=== PATIENT | male | born 1990 | race Caucasian/White ===

== ENCOUNTER 2024-12-05 11:59 | Day surgery (SDC) | payer OTHER, SELFPAY ==
[2024-12-05] VITALS (21 sets, daily range): BP systolic 124–151; BP diastolic 79–93; PULSE 65–104; RESP 14–21; TEMP 36.2–37.2; O2SAT 95–99; BMI 32.4
--- NOTE | 2024-12-05 10:00 | CRLHL7_ITS ---
For Patients: As a result of the 21st Century Cures Act, medical imaging exams and procedure reports are released immediately into your electronic medical record. You may view this report before your referring provider. If you have questions, please contact your health care provider. INDICATION: COMPARISON: None available. TECHNIQUE: CT of the abdomen and pelvis with 117 cc of Isovue 370 intravenous contrast. Neutral oral contrast (water) was also given. Please note that all CT scans at this facility use dose modulation, iterative reconstruction, and/or weight-based dosing when appropriate to reduce radiation dose to as low as reasonably achievable. FINDINGS: ABDOMEN Liver: Normal contour and attenuation. No significant focal lesion. Too small to characterize round hypoattenuating focus in segment 7 (series 2; image 40). This finding is statistically likely to represent benign cyst for which no further workup or ongoing imaging surveillance is indicated in the absence of an established history of malignancy and without significant underlying liver disease. No intrahepatic biliary ductal dilatation. Patent portal veins. Patent hepatic veins. Gallbladder: Normal size. No pericholecystic inflammatory changes. Normal common duct caliber. Pancreas: Normal contour and attenuation. No peripancreatic inflammatory changes. No significant focal lesion. Normal main duct caliber. Spleen: Not enlarged. No significant focal lesion. Patent splenic artery and vein. Adrenal Glands: Symmetrical adrenal glands. No significant focal lesion. Kidneys: Normal bilateral renal attenuation. No significant focal lesion. No nephrolith. No dilatation of the intrarenal collecting systems. No ureteral stone. Nondilated ureters. Patent renal arteries and veins. Gastrointestinal tract: 10 mm appendicolith associated with dilatation of the appendix, wall thickening and periappendiceal inflammatory fat stranding which extends to the right renal fascia and combined interfascial plane of the right iliac fossa. No discontinuity of the appendiceal wall indicate perforation. No abscess. No associated bowel obstruction. Vascular: Abdominal aorta and its major proximal branches including the celiac, superior mesenteric, inferior mesenteric, renal, and bilateral common iliac arteries are patent. Patent superior mesenteric vein. Peritoneal Cavity/Retroperitoneum: No ascites. No adenopathy. PELVIS No bladder lesion is identified. No significant incidental findings related to the prostate or seminal vesicles. No significant ascites. No adenopathy. SKELETON AND BODY WALL No acute or significant incidental findings. LOWER THORAX Partially included lower thoracic wall, lungs, pleural spaces and mediastinum are without significant incidental findings. IMPRESSION: Acute uncomplicated appendicitis. Surgical consultation is recommended. Please note that all CT scans at this facility use dose modulation, iterative reconstruction, and/or weight-based dosing when appropriate to reduce radiation dose to as low as reasonably achievable. Dictated by Jose Manuel Smith MD @ 12/05/2024 10:40:44 AM (Electronically Signed)
--- NOTE | 2024-12-05 13:21 | PM.GSHP ---
History of Present Illness History of Present Illness Date Seen: 12/05/24 Chief complaint: R10.31 - Right lower quadrant pain Narrative: Juan Peters is a 34 year old male who presented to urgent care last night for right lower quadrant abdominal pain. Says the pain has been going on for 2 days. It has always been on the right side. A few weeks ago he had pain in a similar location, which he thought was a bruise. This pain completely resolved before coming back 2 days ago. Since coming back the pain is become more severe and constant. Does report a decrease in appetite. He feels lethargic and fatigued. No fevers at home. No nausea or vomiting. He does have a history of ulcerative colitis, currently well controlled. No history of abdominal surgeries. Patient is a nonsmoker. He works for [employer] in the [employer] department. Meds Home Medications and Allergies Home Medications ?Medication ?Instructions ?Recorded ?Confirmed ?Type mesalamine 1.2 gram tablet,delayed 4.8 g PO DAILY 12/04/24 12/05/24 History release methylphenidate HCl 27 mg 27 mg PO DAILY 12/04/24 12/05/24 History tablet,extended release 24 hr Allergies Allergy/AdvReac Type Severity Reaction Status Date / Time No Known Drug Allergies Allergy Verified 12/05/24 10:27 Exam Narrative: Exam Narrative: General: Alert and oriented, no acute distress Respiratory: Equal breath rise bilaterally, clear breath sounds CV: Regular rhythm and rate, well perfused Abdomen: Soft, tender to palpation right lower quadrant with some guarding. Some rebound tenderness Results Results Labs: Mild leukocytosis (11) Abdomen CT scan report/results: report reviewed and image reviewed Progress Note:A&P Assessment and plan (1) Acute appendicitis: Status: Acute Plan The patient presented with a history, exam and imaging findings consistent with acute appendicitis. I discussed the treatment options with the patient including non-surgical and surgical options. I recommended laparoscopic appendectomy. The risks of surgery were reviewed with the patient including the risks of bleeding, post-operative wound or intra-abdominal infection, injury to abdominal structures and possible conversion to an open operation. We also discussed anesthetic complications including MA, stroke, respiratory failure and blood clots. The patient voiced an understanding of our conversation, had the opportunity to ask questions, agreed to accept the risks of surgery and asked that we proceed with surgery. -OR for laparoscopic appendectomy
[2024-12-05] MEDS: PIPERACILLIN/TAZOBACTAM 3.375 GM INJ IVPB (14:50)
[2024-12-05] MEDS: LACTATED RINGERS 1000 ML 1,000 ML 125 ML IV ×2 (15:07→17:04)
--- NOTE | 2024-12-05 15:08 | P.ANES_ITS ---
Anesthesia Charges Start Date/Time Anesthesia Start Date: 12/05/24 Anesthesia Start Time: 14:37 Stop Date/Time Anesthesia Stop Date: 12/05/24 Anesthesia Stop Time: 16:36 Summary Emergency: SIMON Coding CPT Codes CPT Codes: ANESTH SURG LOWER ABDOMEN - 52822 ([id number]) P2 - PATIENT W/MILD SYST DISEASE, QK - SHIP DESIGN TEACHER 2-4 CNCRNT ANES PROC, QX - COMPANY MARKER SVC W/ MD MED DIRECTION Additional Codes: Summary - Emergency: SIMON ([id number])
--- NOTE | 2024-12-05 15:08 | W.ANESCHARGE ---
Anesthesia Charges Start Date/Time Anesthesia Start Date: 12/05/24 Anesthesia Start Time: 14:37 Stop Date/Time Anesthesia Stop Date: 12/05/24 Anesthesia Stop Time: 16:36 Summary Emergency: SIMON Coding CPT Codes CPT Codes: ANESTH SURG LOWER ABDOMEN - 55191 ([id number]) P2 - PATIENT W/MILD SYST DISEASE, QK - SEWER SEPARATION DESIGNER 2-4 CNCRNT ANES PROC, QX - MACHINE STRIPPER CUTTER SVC W/ MD MED DIRECTION Additional Codes: Summary - Emergency: SIMON ([id number])
[2024-12-05] MEDS: BUPIVACAINE 0.25% 30 ML INJECTION (15:56)
--- NOTE | 2024-12-05 16:23 | PM.GSPRC ---
Operative Note Date of procedure: 12/05/24 Pre-op diagnosis: Acute appendicitis Post-op diagnosis: Same Type of Procedure: Laparoscopic appendectomy Indications: Patient is a 34-year-old male with clinical history and workup concerning for acute appendicitis. CT scan confirmed evidence of an inflamed appendix, no obvious perforation. Risks and benefits of operative intervention were discussed at length with the patient. Risks included but was not limited to: Bleeding, infection, risk of damage to surrounding structures, possible need for additional procedures, possible need to convert to an open operation and postoperative complications such as pneumonia, pulmonary emboli or MT. All questions and concerns were addressed with the patient agreeing to proceed. Procedure Description: After discussing the risks and benefits of the procedure, the patient signed informed consent.? The operative site was marked and the patient was brought to the operating room and placed on the operating table in supine position.? Care was taken to pad the patient's pressure points.?? The patient was then intubated by anesthesia.?? The operative site was then prepped and draped in the usual sterile fashion.? A time-out was then performed. Entrance to the abdomen was obtained via a 5 mm optical trocar in the left upper quadrant. The abdomen was insufflated and briefly surveyed for any signs of injury. There were none. A 12 mm port was placed lateral to the umbilicus as well as a 5 mm port in the left lower quadrant under direct vision. The patient was then placed in Trendelenburg position with the right side up. The small bowel was gently moved out of the way. The base of the appendix was easily identified and not inflamed. The body of the appendix and tip were enlarged and encased in an inflammatory rind. The tip of the appendix was adherent to the lateral abdominal wall. I started by creating a mesenteric window between the base of the appendix and the mesoappendix. A 45 mm Endo-FARZANA purple load stapler was used to transect the appendiceal base. The staple line was inspected. A small pinpoint area of arterial bleeding was controlled with two 5 mm clips. The body of the appendix and distal tip was bluntly dissected away from the lateral abdominal wall. This was enlarged, firm, but with no obvious perforation. Using the LigaSure device the mesoappendix was ligated from the body of the appendix. The appendiceal artery was identified and two 5 mm clips placed proximally before ligating with the LigaSure device. During this portion of the dissection the terminal ileum was identified coming off of the cecum. It was adherent to the body of the appendix, but able to be carefully dissected free and moved away from the operative field. A small amount of irrigation was used in the right lower quadrant. Hemostasis was excellent. The appendix was then removed from the abdomen using an Endo-Catch bag. The specimen was very large, firm and difficult to extract. The 12 mm port incision site was extended sharply with scissors. The specimen was then able to be removed and examined on the back table. A fecalith was identified within the appendiceal body. A thick inflammatory rind encased the appendix. No evidence of perforation or obvious tumor. The 12 mm port site fascia was closed with 0 Vicryl. All remaining ports were removed under direct visualization. The skin was then closed with absorbable subcuticular suture. Sterile dressings were then applied. Instrument sponge and needle counts were correct at the end of the case. The patient was then woken and transported to the PACU in stable condition. Findings: Inflamed appendix, no evidence of perforation. Anesthesia: GETA Surgeon: Lara Palma MD Estimated blood loss (mL): 15 Specimen: Appendix Condition: stable Disposition: PACU
--- NOTE | 2024-12-05 16:33 | P.ANES_ITS ---
Anesthesia Charges Start Date/Time Anesthesia Start Date: 12/05/24 Anesthesia Start Time: 14:37 Stop Date/Time Anesthesia Stop Date: 12/05/24 Anesthesia Stop Time: 16:36 Summary Emergency: CUSTOM MILLER Coding CPT Codes CPT Codes: ANESTH SURG LOWER ABDOMEN - 94329 ([id number]) P1 - NORMAL HEALTHY PATIENT, QK - SCREEN PRINTING MACHINE OPERATOR 2-4 CNCRNT ANES PROC, QX - CUSTOM MILLER SVC W/ MD MED DIRECTION Additional Codes: Summary - Emergency: CUSTOM MILLER ([id number])
--- NOTE | 2024-12-05 16:33 | W.ANESCHARGE ---
Anesthesia Charges Start Date/Time Anesthesia Start Date: 12/05/24 Anesthesia Start Time: 14:37 Stop Date/Time Anesthesia Stop Date: 12/05/24 Anesthesia Stop Time: 16:36 Summary Emergency: CIRCULAR SAW EDGE FUSER Coding CPT Codes CPT Codes: ANESTH SURG LOWER ABDOMEN - 33026 ([id number]) P1 - NORMAL HEALTHY PATIENT, QK - ENGLISH COMPOSITION INSTRUCTOR 2-4 CNCRNT ANES PROC, QX - CIRCULAR SAW EDGE FUSER SVC W/ MD MED DIRECTION Additional Codes: Summary - Emergency: CIRCULAR SAW EDGE FUSER ([id number])
--- NOTE | 2024-12-05 17:00 | SUR.PHASEI ---
Patient came to PACU awake and complaining of abdominal pain, level 7. Medication given, Pain level reduced to a level 2. Ice applied to incision areas.
--- NOTE | 2024-12-05 17:11 | SUR.PHASEI ---
Patient meets anesthesia discharge criteria from PACU.
--- NOTE | 2024-12-05 19:03 | PC.NURSE ---
End of Shift: Patient pleasant and cooperative, A&O. VSS, afebrile. SpO2 maintained above 90% on RA. Patient reports abdominal pain this shift, managed with PRN medication, see MAR. Dressings on abdomen C/D/I. Tolerating regular diet, denies nausea. ?
[2024-12-05] MEDS: PIPERACILLIN/TAZOBACTAM 3.375 GM in 0.9 % SODIUM CHLORIDE Mini-bag 100 ML IVPB (21:14)
[2024-12-05] MEDS: HYDROCODONE-ACETAMIN 5-325 MG 1 TAB PO (21:32)
[2024-12-06 03:55] VITALS: BP 138/80; PULSE 65; RESP 16; TEMP 36.2; O2SAT 97
[2024-12-06] MEDS: PIPERACILLIN/TAZOBACTAM 3.375 GM in 0.9 % SODIUM CHLORIDE Mini-bag 100 ML IVPB ×2 (03:57→08:47)
[2024-12-06] MEDS: HYDROCODONE-ACETAMIN 5-325 MG 1 TAB PO (04:01)
--- NOTE | 2024-12-06 06:37 | PC.NURSE ---
End of shift: Pt pleasant, alert and oriented.?IV in LAC dc?d due to discomfort. Pain rated 2- /10 throughout shift, prn Preston given. Dressings C/D/I (3 lap sites). Ice pack to op site. Up independently. Pt in bed, appears to be resting call light within reach.?
[2024-12-06 07:00] VITALS: RESP 18; O2SAT 98
[2024-12-06 07:45] VITALS: BP 123/73; PULSE 77; RESP 18; TEMP 36.5; O2SAT 98
--- NOTE | 2024-12-06 08:47 | PM.DS1 ---
DS: Providers Provider Date Seen: 12/06/24 Primary care physician: Yaniv Mckeon MD Attending Physician on discharge: Lara Palma MD DS: Summary Hospital Course Hospital Course: Patient went to the operating room for a laparoscopic appendectomy. No evidence of perforation. On postop day 1 he was tolerating a regular diet, ambulating without difficulty and voiding independently. Pain was well controlled with pain medication. Patient was discharged to home. Recommended 2 week follow-up. Time Spent with Patient Time attestation: Total time spent providing and/or coordinating discharge services: Exam Narrative: Exam Narrative: General: Alert and oriented, no acute distress Respiratory: Equal breath rise bilaterally, maintained on room air CV: Well perfused Abdomen: Soft, appropriately tender over incision sites. Some mild ecchymoses around the middle incision. No right-sided tenderness. Const: Vital Signs, click to edit/add: Vital Signs - 24 hr 12/05/24 13:27 12/05/24 16:32 12/05/24 16:35 Temperature 99.0 F 97.4 F L Pulse Rate 70 104 H 93 Pulse Rate [Left P ulse Oximeter] Respiratory Rate 16 16 16 Blood Pressure 124/84 151/91 H 146/92 H Blood Pressure [Le ft Arm] Blood Pressure [Ri ght Arm] Pulse Oximetry 98 98 98 Oxygen Delivery Me thod Room Air Room Air 12/05/24 16:40 12/05/24 16:45 12/05/24 16:50 Temperature Pulse Rate 95 100 94 Pulse Rate [Left P ulse Oximeter] Respiratory Rate 16 16 16 Blood Pressure 142/92 H 137/85 134/85 Blood Pressure [Le ft Arm] Blood Pressure [Ri ght Arm] Pulse Oximetry 97 95 96 Oxygen Delivery Me thod Room Air 12/05/24 16:55 12/05/24 17:00 12/05/24 17:05 Temperature 97.2 F L Pulse Rate 93 90 93 Pulse Rate [Left P ulse Oximeter] Respiratory Rate 16 21 16 Blood Pressure 137/82 132/79 132/80 Blood Pressure [Le ft Arm] Blood Pressure [Ri ght Arm] Pulse Oximetry 96 96 97 Oxygen Delivery Me thod Room Air 12/05/24 17:15 12/05/24 17:30 12/05/24 17:45 Temperature 97.4 F L 97.4 F L Pulse Rate Pulse Rate [Left P ulse Oximeter] 85 80 83 Respiratory Rate 14 16 Blood Pressure Blood Pressure [Le ft Arm] 137/89 Blood Pressure [Ri ght Arm] 137/87 147/85 H Pulse Oximetry 99 97 Oxygen Delivery Me thod Room Air Room Air 12/05/24 18:00 12/05/24 18:15 12/05/24 18:30 Temperature 97.2 F L 97.6 F 98.3 F Pulse Rate Pulse Rate [Left P ulse Oximeter] 83 82 88 Respiratory Rate 16 16 16 Blood Pressure Blood Pressure [Le ft Arm] 138/82 124/87 Blood Pressure [Ri ght Arm] 149/93 H Pulse Oximetry 96 97 97 Oxygen Delivery Me thod Room Air Room Air Room Air 12/05/24 19:42 12/05/24 20:30 12/05/24 21:07 Temperature 97.7 F Pulse Rate Pulse Rate [Left P ulse Oximeter] 67 65 86 Respiratory Rate 18 18 Blood Pressure Blood Pressure [Le ft Arm] Blood Pressure [Ri ght Arm] 132/88 146/82 H 134/81 Pulse Oximetry 98 98 96 Oxygen Delivery Me thod Room Air Room Air 12/05/24 22:04 12/05/24 23:00 12/05/24 23:00 Temperature 97.6 F Pulse Rate Pulse Rate [Left P ulse Oximeter] 87 Respiratory Rate 18 16 Blood Pressure Blood Pressure [Le ft Arm] Blood Pressure [Ri ght Arm] 133/86 Pulse Oximetry 98 98 Oxygen Delivery Me thod Room Air Room Air 12/05/24 23:12 12/06/24 03:55 12/06/24 07:00 Temperature 98.3 F 97.2 F L Pulse Rate Pulse Rate [Left P ulse Oximeter] 91 65 Respiratory Rate 16 16 18 Blood Pressure Blood Pressure [Le ft Arm] Blood Pressure [Ri ght Arm] 133/82 138/80 Pulse Oximetry 96 97 98 Oxygen Delivery Me thod Room Air Room Air Room Air 12/06/24 07:45 12/06/24 07:45 Temperature 97.7 F Pulse Rate Pulse Rate [Left P ulse Oximeter] 77 77 Respiratory Rate 18 18 Blood Pressure Blood Pressure [Le ft Arm] 123/73 Blood Pressure [Ri ght Arm] Pulse Oximetry 98 Oxygen Delivery Me thod Room Air Discharge Plan Discharge Disposition: Home w/ Parent or Adult Discharging Surgeon: Lara Palma Follow-Up Appointment: 2 week follow up Prescriptions: New hydrocodone-acetaminophen 5-325 mg tablet 1 tab PO Q6H PRN (Reason: pain) Qty: 20 0RF senna 8.6 mg capsule 8.6 mg PO DAILY PRN (Reason: constipation) Qty: 90 0RF Continued methylphenidate HCl 27 mg tablet extended release 24hr 27 mg PO DAILY mesalamine 1.2 gram tablet,delayed release (DR/EC) 4.8 g PO DAILY Activity Level: No strenuous activity Activity Detail: Activity as tolerated. Avoid strenuous activity. No lifting greater than 20 lb for 2 weeks. Discharge Diet: Regular Patient Instructions: General Anesthesia (DC), NH+C Post-Operative Instructions: Appendectomy Additional Instructions: You were prescribed a narcotic pain medication. In addition you may supplement with Tylenol and/or ibuprofen. Be sure to not exceed greater than 4 g of Tylenol in a 24 hour period. While on narcotic pain medicine please take stool softeners. A prescription of stool softeners has been sent to the pharmacy. Stop if having greater than 2 stools per day. You have Steri-Strips dressings in place, allow these to fall off on their own. Okay to shower starting tomorrow. Do not soak in a bath or swim for 2 weeks. Follow-up with Dr. Palma in 2-3 weeks. Please call if you are experiencing severe pain, nausea, vomiting, difficulty urinating, fever or not had a bowel movement in 4 days after surgery. Forms: Work/School Release Follow-up: Yaniv Mckeon MD [Primary Care Provider, Family Practice] Discharge Orders: Discharge Order (Routine); Ordered 12/06/24 Ordered By: Lara Palma
--- NOTE | 2024-12-06 11:14 | PC.NURSE ---
Discharge: Patient pleasant and cooperative, A&O. VSS, afebrile. SpO2 maintained above 90% on RA. Patient reports minimal pain in his abdomen this shift, declines PRN medication. Dressings to abdomen C/D/I. Tolerating regular diet, denies nausea. Independent in room. IV removed with tip intact. D/C to home with .
== END 2024-12-06 10:45 | disposition home or self-care (01) ==
LOC: SS 11:59 → OR 12:29 → MEDSURG 17:28
PROVIDERS: PCP Family Medicine; Visit Provider Surgery
PROC: 0DTJ4ZZ Resection of Appendix, Percutaneous Endoscopic Approach (ICD-10-PCS; CPT 44970; principal; 2024-12-05 14:30)
DX: K35.80 Unspecified acute appendicitis (principal)
CPT/HCPCS: 44970; 00840; 74177; 88304; 99140; A9270; J0665; J1100; J1171; J2250; J2405; J2543; J2704; J3010; J3490; J7120; Q9967